=== PATIENT | female | born 1970 | race Caucasian/White ===

== ENCOUNTER 2024-08-12 12:15 | Emergency (ER) | payer BC, SELFPAY ==
[2024-08-12 12:53] VITALS: BP 139/75; PULSE 79; RESP 16; TEMP 37.1; O2SAT 95; BMI 30.4
[2024-08-12 13:53] LABS: PCR FLU A Negative PCR FLU A (Negative); PCR FLU B Negative PCR FLU B (Negative); PCR RSV Negative PCR RSV (Negative); SARS PCR* Negative SARS-CoV-2 (Negative)
[2024-08-12 14:43] LABS: Lactate Sepsis w/Reflex* 0.8 mmol/L (0.5-1.9)
[2024-08-12] MEDS: KETOROLAC 15 MG/ML inj IVP (14:48)
[2024-08-12 14:54] LABS: Basophils Percent Auto 0.3 % (0.0-3.0); Eosinophils Percent Auto 0.1 % (0.0-7.0); Hematocrit 39.8 % (33.0-51.0); Hemoglobin* 12.7 gm/dL (12.0-16.0); Immature Granulocytes Pct Auto 1.1 %; Lymphocytes Percent Auto 23.6 % (20-44); Mean Corpuscular HGB Conc 32 gm/dL (32-36); Mean Corpuscular Hemoglobin 29 pg (26-34); Mean Corpuscular Volume 92 fL (80-100); Monocytes Percent Auto 7.3 % (0.0-11.0); Neutrophils Percent Auto 67.6 % (42.0-72.0); Platelet Count* 274 K/uL (140-440); Red Blood Count 4.34 m/uL (4.00-5.20); White Blood Count* 13.24 K/uL (4.50-11.00)
[2024-08-12 15:02] LABS: Chloride* 105 mmol/L (96-114); Potassium* 3.5 mmol/L (3.6-5.1); Slide Review Reflex No; Sodium* 137 mmol/L (135-149)
[2024-08-12 15:05] LABS: Creatinine* 0.4 mg/dL (0.5-1.5); Est. Creatinine Clearance* 162.19; Estimated Glomerular Filt Rate 118 ml/min
[2024-08-12 15:06] LABS: Blood Urea Nitrogen* 8 mg/dL (7-30); Calcium* 8.4 mg/dL (8.4-10.6); Carbon Dioxide* 27 mmol/L (20-32); Glucose* 85 mg/dL (60-115)
[2024-08-12 15:07] LABS: Anion Gap 5 mEq/L (7-15)
[2024-08-12 15:09] LABS: C Reactive Protein* 1.1 mg/dL (0.5-1.0)
[2024-08-12 15:34] VITALS: PULSE 75; O2SAT 97
[2024-08-12 15:46] LABS: Erythrocyte SedimentationRate* 16 mm/hr (2-20)
--- NOTE | 2024-08-12 15:46 | ED_ITS ---
HPI - General Adult General Date Seen: 08/12/24 Chief complaint: Cough Stated complaint: Pneumonia last week worse Time Seen by Provider: 08/12/24 14:04 Source: patient History of Present Illness HPI narrative: Patient is a 54-year-old woman, past medical history reviewed, who presented to [place] [id number] on 08/06 because of right-sided chest pain. Her workup there showed a near normal white blood cell count of 11.8, a D-dimer of 0.6 which led to a chest CT. This was read as showing increased right upper lobe consolidation compared to the prior exam. She says that she has had prior scans of her heart, and presumably that is with her comparing it to, but it looks as if this last CT was done in December of 2017. They noted scattered ground-glass nodular opacities throughout the right upper lobe and additional ground-glass nodular opacities in the right middle lobe right lower lobe and left upper lobe new compared to prior. They read this as most compatible with multifocal pneumonia. We started her on doxycycline. She notes that she just does not feel any better. She is not knee worse. She reports that she thinks she is having low-grade fevers at night, nothing above 100. She has a little bit of a cough, she notes some phle gm. She does not feel short of breath. She continues to have this right-sided chest pain which is her primary complaint. This is worse with breathing and with movement. She also notes fatigue. CT scan at [place] [id number] was negative for PE. Related Data Home Medications ?Medication ?Instructions ?Recorded ?Confirmed 5-MTHF Plus methy 1 B-12 (l-methyl PO 07/03/24 07/03/24 Folate) ammonium lactate 12 % topical cream 1 applic topical DAILY 07/03/24 07/03/24 bioidentical hormones PO 07/03/24 07/03/24 cholecalciferol (vitamin D3) 250 250 mcg PO QDAY 07/03/24 07/03/24 mcg (10,000 unit) tablet methylated 10 X health multi PO 07/03/24 psyllium 1 packet PO QDAY 07/03/24 07/03/24 Previous Rx's ?Medication ?Instructions ?Recorded fluticasone propionate 50 1 spray intranasal QDAY #16 grams 07/03/24 mcg/actuation nasal spray,suspension (Flonase Allergy Relief) nicotine (polacrilex) 4 mg gum 4 mg PO Q1-2H PRN nicotine 07/03/24 cravings #40 ea phentermine 37.5 mg tablet 37.5 mg PO QDAY #30 tabs 07/03/24 trazodone 100 mg tablet 50 - 100 mg (0.5 - 1 x 100 mg) PO 07/03/24 QHS #30 tabs fluoxetine 20 mg capsule (Prozac) See Rx Instructions PO QDAY #60 07/29/24 caps levofloxacin 500 mg tablet 500 mg PO DAILY 7 days #7 tabs 08/12/24 prednisone 20 mg tablet 20 mg PO BID #10 tabs 08/12/24 Allergies Allergy/AdvReac Type Severity Reaction Status Date / Time Latex, Natural Rubber Allergy Mild Unknown Verified 07/03/24 09:50 acetaminophen (From Vicodin) Allergy Unknown Vomiting Verified 07/09/24 09:02 hydrocodone (From Vicodin) Allergy Unknown Vomiting Verified 07/09/24 09:02 Review of Systems Status of ROS: Reports: 10 or more systems reviewed and unremarkable except as noted in History and below PFSH PFSH Medical History Major depression, recurrent ?F33.9 - Major depressive disorder, recurrent, unspecified (ICD-10) Plantar fasciitis of left foot ?M72.2 - Plantar fascial fibromatosis (ICD-10) LEXIS (obstructive sleep apnea) ?G47.33 - Obstructive sleep apnea (adult) (pediatric) (ICD-10) Bacterial vaginosis ?N76.0 - Acute vaginitis (ICD-10) ?B96.89 - Other specified bacterial agents as the cause of diseases classified elsewhere (ICD-10) Elevated hemoglobin A1c measurement ?R73.09 - Other abnormal glucose (ICD-10) Right atrial mass ?I51.89 - Other ill-defined heart diseases (ICD-10) History of colon polyps ?Z86.0100 - Personal history of colon polyps, unspecified (ICD-10) History of basal cell carcinoma (BCC) ?Z85.828 - Personal history of other malignant neoplasm of skin (ICD-10) Nontoxic thyroid nodule ?E04.1 - Nontoxic single thyroid nodule (ICD-10) Essential hypertension ?I10 - Essential (primary) hypertension (ICD-10) Genital herpes ?A60.00 - Herpesviral infection of urogenital system, unspecified (ICD-10) Fatty liver ?K76.0 - Fatty (change of) liver, not elsewhere classified (ICD-10) Microscopic colitis ?K52.839 - Microscopic colitis, unspecified (ICD-10) ALEX (generalized anxiety disorder) ?F41.1 - Generalized anxiety disorder (ICD-10) Exogenous obesity ?E66.09 - Other obesity due to excess calories (ICD-10) Insomnia ?G47.00 - Insomnia, unspecified (ICD-10) Chronic nasal congestion ?R09.81 - Nasal congestion (ICD-10) IBS (irritable bowel syndrome) ?K58.9 - Irritable bowel syndrome, unspecified (ICD-10) Tobacco use (12/05/11) ?Z72.0 - Tobacco use (ICD-10) Surgical History History of lumbar discectomy ?Z98.890 - Other specified postprocedural states (ICD-10) History of bladder surgery (2003) ?Z98.890 - Other specified postprocedural states (ICD-10) History of tubal ligation (1996) ?Z98.51 - Tubal ligation status (ICD-10) History of tonsillectomy and adenoidectomy (1982) ?Z90.89 - Acquired absence of other organs (ICD-10) History of breast biopsy ?Z98.890 - Other specified postprocedural states (ICD-10) History of reconstruction of anterior cruciate ligament tear ?Z98.890 - Other specified postprocedural states (ICD-10) History of cholecystectomy ?Z90.49 - Acquired absence of other specified parts of digestive tract (ICD- 10) History of hysterectomy (1998) ?Z90.710 - Acquired absence of both cervix and uterus (ICD-10) Family History Sister Diabetes Mother Diabetes Stroke Bipolar disorder Mitral valve disease Celiac disease Alcohol dependence High blood pressure Father Diabetes Alcohol dependence Heart disease Breast cancer High blood pressure Brother Heart disease Myocardial infarction, Onset Age: 44 Drug dependence High blood pressure Sister Bipolar disorder Drug dependence High blood pressure Aunt Breast cancer Social History Narrative: Single, two kids, one (son, OD'd while in custody), road construction, smoker, no EtOH What is your current living situation?: I presently have a place to live Problems where you live: no known problems In the past 12 months, utilities in danger of being shut off: no In past 12 months, lack of transportation kept you from medical appts, meetings, work, or getting things needed for daily living: no In the past 12 mos, have been you worried that your food would run out before you had money to buy more?: never true In the past 12 mos, the food you bought just didn't last and you didn't have money to buy more?: never true Smoking Status: Current some day smoker What tobacco products do you use: cigarettes How often does anyone, including family, friends and others, physically hurt you : never How often does anyone, including family, friends and others, insult or talk down to you: never How often does anyone, including family, friends and others, threaten you with harm: never How often does anyone, including family, friends and others, scream or curse at you: never Exam Narrative: Exam Narrative: Vital signs reviewed In general, alert, nontoxic woman. Breathing easily. Head: Normocephalic, atraumatic. Eyes: Sclera clear. Pupils equal and reactive. ENT: Mucous membranes moist. Neck: Supple without adenopathy. Heart: Regular rate and rhythm without murmur. Lungs: Clear. No increased work of breathing, crackles or wheezes. Abdomen: Soft, nontender to palpation. Extremities: Well perfused, pulses intact. No significant edema. Neurologic: Alert, conversant. Speech fluent, face symmetric. Moves all extremities equally. Skin: Warm, dry well perfused. Affect: Normal. Const: Vital Signs, click to edit/add: Vital Signs - 24 hr 08/12/24 12:53 08/12/24 15:34 08/12/24 16:00 Temperature 98.7 F Pulse Rate 75 75 Pulse Rate [Pulse Oximeter] 79 Respiratory Rate 16 Blood Pressure [Ri ght Upper Arm] 139/75 Pulse Oximetry 95 97 97 Oxygen Delivery Me thod Room Air Course Course ED Course: I reviewed records from [place] [address] as outlined in the HPI. Overall, her presentation is not entirely suggestive of pneumonia, although it is possible that doxycycline did not provide adequate coverage. I did repeat labs, her white blood cell count is mildly higher today at 13. Her CRP is essentially normal at 1.1 however. Hemoglobin is normal, metabolic panel is unremarkable. Lactate is 0.8. COVID is negative as is influenza. TSH and sed rate are pending at this time. Placed an IV here in gave her Toradol to see if that helps her chest pain. She does have an appointment scheduled with her primary doctor on August 15. I do not see any indications for admission here, she is not toxic, hypoxic, or otherwise significantly ill appearing. I think it is reasonable to provide additional antibiotic coverage, she wonders about starting a steroid as well. Discussed that I do not hear any bronchospasm, I am not sure that a steroid will be significantly helpful, but it is probably not harmful to add either if she would like. Sed rate is normal. She does feel improved after Toradol. She was prescribed lidocaine patches and Flexeril by [facility]. She says she did not fill the lidocaine patches because she does not feel like they are helpful. She had a lengthy story about the Flexeril, not clear whether she actually filled that or not. At this point, I do not have a clear alternate diagnosis other than pneumo júnior. Her TSH is mildly elevated at 4.5 but I do not think this is going to end up being clinically significant. Free T4 is pending. I am giving her Levaquin and prednisone. Will see if she is feeling better over the next few days. If she does not improve with this, we may need to consider alternate explanations for her lung findings. Return any time for significant worsening. See primary care in a few days as planned. Vital Signs Vital signs: Initial Vital Signs Temperature 98.7 F 08/12/24 12:53 Temperature Source Temporal Artery Scan 08/12/24 12:53 Pulse Rate 79 08/12/24 12:53 Respiratory Rate 16 08/12/24 12:53 Blood Pressure 139/75 08/12/24 12:53 Blood Pressure Mean 96 08/12/24 12:53 Blood Pressure Position Sitting 08/12/24 12:53 Pulse Oximetry 95 08/12/24 12:53 Oxygen Delivery Method Room Air 08/12/24 12:53 Vital Signs Temperature 98.7 F 08/12/24 12:53 Pulse Rate 79 08/12/24 12:53 Respiratory Rate 16 08/12/24 12:53 Blood Pressure 139/75 12/30/24 12:53 Pulse Oximetry 95 08/12/24 12:53 Oxygen Delivery Method Room Air 08/12/24 12:53 Temperature 98.7 F 08/12/24 12:53 Pulse Rate 75 08/12/24 16:00 Respiratory Rate 16 08/12/24 12:53 Blood Pressure 139/75 08/12/24 12:53 Pulse Oximetry 97 08/12/24 16:00 Oxygen Delivery Method Room Air 08/12/24 12:53 Medications Administered Medications: Discontinued Medications Generic Name Dose Route Start Last Admin Trade Name Freq PRN Reason Stop Dose Admin Ketorolac Tromethamine 15 mg 08/12/24 14:23 08/12/24 14:48 Ketorolac 15 Mg/Ml Inj IVP 08/12/24 14:24 15 mg ONCE ONE Administration Medical Decision Making Lab Data Labs: Lab Results 08/12/24 08/12/24 Range/Units 12:57 14:35 WBC 13.24 H (4.50-11.00) K/uL RBC 4.34 (4.00-5.20) m/uL Hgb 12.7 (12.0-16.0) gm/dL Hct 39.8 (33.0-51.0) % MCV 92 (80-100) fL MCH 29 (26-34) pg MCHC 32 (32-36) gm/dL RDW Coeff of Sunil 13.0 (11.5-15.5) % Plt Count 274 (140-440) K/uL Neut % (Auto) 67.6 (42.0-72.0) % Lymph % (Auto) 23.6 (20-44) % Lewis % (Auto) 7.3 (0.0-11.0) % Eos % (Auto) 0.1 (0.0-7.0) % Baso % (Auto) 0.3 (0.0-3.0) % Neut # (Auto) 9.00 H (1.7-7.0) K/uL Lymph # (Auto) 3.10 H (0.90-2.90) K/uL Lewis # (Auto) 1.00 H (0.00-0.90) K/UL Eos # (Auto) 0.00 (0.00-0.50) K/uL Baso # (Auto) 0.00 (0.00-0.30) K/uL Abs Immat Gran (auto) 0.10 (0.00-0.30) K/uL Imm/Tot Granulo (auto) 1.1 % ESR 16 (2-20) mm/hr Sodium 137 (135-149) mmol/L Potassium 3.5 L (3.6-5.1) mmol/L Chloride 105 (96-114) mmol/L Carbon Dioxide 27 (20-32) mmol/L Anion Gap 5 L (7-15) mEq/L BUN 8 (7-30) mg/dL Creatinine 0.4 L (0.5-1.5) mg/dL Estimated Creat Clear 162.19 Estimated GFR 118 ml/min Glucose 85 (60-115) mg/dL Lactate 0.8 (0.5-1.9) mmol/L Calcium 8.4 (8.4-10.6) mg/dL C-Reactive Protein 1.1 H (0.5-1.0) mg/dL TSH 4.500 H (0.270-4.200) uIU/mL Free T4 1.12 (0.70-1.85) ng/dL SARS-CoV-2 (PCR) Negative SARS-CoV-2 (Negative) Influenza Type A (PCR) Negative PCR FLU A (Negative) Influenza Type B (PCR) Negative PCR FLU B (Negative) RSV (PCR) Negative PCR RSV (Negative) Discharge Plan Discharge Clinical Impression: Pulmonary infiltrate on radiologic exam Patient Disposition: Home, Self-Care Condition: Improved Additional Instructions: We are going to try putting you on a different antibiotic as well as a little bit of prednisone to see how you feel. If symptoms are not improving, please discuss further with Dr. Galicia on the 2nd. For acute worsening such as high fevers, significant shortness of breath, vomiting etcetera return to the ER at any time. Prescriptions: New levofloxacin 500 mg tablet 500 mg PO DAILY 7 Days Qty: 7 0RF prednisone 20 mg tablet 20 mg PO BID Qty: 10 0RF No Action ammonium lactate 12 % cream 1 applic topical DAILY bioidentical hormones PO methylated 10 X health multi PO 5-MTHF Plus methy 1 B-12 (l-methyl Folate) PO cholecalciferol (vitamin D3) 250 mcg (10,000 unit) tablet 250 mcg PO QDAY psyllium Packet 1 packet PO QDAY Rx Instructions: mix into at least 8 oz of water or juice before administering phentermine 37.5 mg tablet 37.5 mg PO QDAY Qty: 30 1RF Rx Instructions: must administer 30 minutes before or 1-2 hours after breakfast trazodone 100 mg tablet 50 - 100 mg PO QHS Qty: 30 1RF fluticasone propionate [Flonase Allergy Relief] 50 mcg/actuation spray,suspe nsion 1 spray intranasal QDAY Qty: 16 5RF Rx Instructions: administer into each nostril nicotine (polacrilex) 4 mg gum 4 mg PO Q1-2H PRN (Reason: nicotine cravings) Qty: 40 2RF fluoxetine [Prozac] 20 mg capsule See Rx Instructions PO QDAY Qty: 60 0RF Rx Instructions: 2 QD Follow Up/Referrals: Carlton Galicia MD [Primary Care Provider] - Stand Alone Forms: [facility] Info Instructions
[2024-08-12 16:00] VITALS: PULSE 75; O2SAT 97
[2024-08-12 17:15] LABS: Free T4 Free Thyroxine* 1.12 ng/dL (0.70-1.85)
== END 2024-08-12 16:22 | disposition home or self-care (01) ==
PROVIDERS: Emergency Provider Emergency Medicine; PCP Family Medicine
DX: R91.8 Other nonspecific abnormal finding of lung field (principal)
CPT/HCPCS: 36415; 80048; 83605; 84439; 84443; 85025; 85651; 86140; 87631; 94761; 96374; 99284; J1885

== ENCOUNTER 2024-08-15 09:04 | Outpatient (CLI) | payer BC, SELFPAY | END 2024-08-15 09:05 | disposition home or self-care (01) | LOC: FBOREF 09:05 | PROVIDERS: PCP Family Medicine; Visit Provider Family Medicine | DX: E78.2 Mixed hyperlipidemia (principal) | CPT/HCPCS: 80061 ==

== ENCOUNTER 2024-10-03 09:46 | Outpatient (CLI) | payer BC, SELFPAY ==
--- NOTE | 2024-10-03 10:00 | CRLHL7_ITS ---
For Patients: As a result of the Century Cures Act, medical imaging exams and procedure reports are released immediately into your electronic medical record. You may view this report before your referring provider. If you have questions, please contact your health care provider. Indication: Chronic sinusitis. Nasal congestion. Sleep apnea. Recent pneumonia. Technique: Noncontrast CT of the paranasal sinuses. Coronal and sagittal reformats. Bone and soft tissue algorithms. Comparison: None Findings: Frontal sinuses: The frontal sinuses and frontal recesses are clear. Ethmoid air cells: The ethmoid air cells are clear. Sphenoid sinuses: Marked mucosal thickening and subtotal opacification of the right sphenoid sinus with chronic osteitis changes and narrowed the sphenoethmoidal recess. Clear left sphenoid sinus and sphenoethmoidal recess. Maxillary sinuses: The maxillary sinuses are clear. The osteomeatal units are clear. Nasal cavity: Slight leftward nasal septal deviation. No large brittney bullosa or paradoxical turbinates. Skull base, maxilla, TMJ: No suspicious dental periapical lucencies. No concerning findings within the orbits or included intracranial structures. Small left and trace right mastoid effusions. Left TMJ arthrosis. IMPRESSION: 1. Subtotal opacification of the right sphenoid sinus from marked mucosal thickening and chronic osteitis changes. Narrowed right sphenoethmoidal recess. 2. Remainder of the sinonasal cavities are clear. 3. Slight leftward nasal septal deviation. 4. Small left and trace right mastoid effusions. 5. Left TMJ arthrosis. Please note that all CT scans at this facility use dose modulation, iterative reconstruction, and/or weight-based dosing when appropriate to reduce radiation dose to as low as reasonably achievable. Dictated by Viki Crockett MD @ 10/03/2024 1:04:17 PM (Electronically Signed)
== END 2024-10-03 09:47 | disposition home or self-care (01) ==
LOC: CT 09:47
PROVIDERS: PCP Family Medicine; Visit Provider Family Medicine
DX: J32.9 Chronic sinusitis, unspecified (principal); R09.81 Nasal congestion; J34.2 Deviated nasal septum; M19.09 Primary osteoarthritis, other specified site
CPT/HCPCS: 70486

== ENCOUNTER 2024-12-12 15:07 | Outpatient (CLI) | payer BC, SELFPAY ==
[2024-12-12 18:32] LABS: Bacterial Vaginosis* Negative (Negative); Candida glab/krus NOT DETECTED (No Detected); Candida species NOT DETECTED (No Detected); Trichomonas vaginalis NOT DETECTED (No Detected)
[2024-12-12 19:03] LABS: Chlamydia DNA Amplified* NOT DETECTED (No Detected); GC DNA Amplified* NOT DETECTED (No Detected)
== END 2024-12-12 15:08 | disposition home or self-care (01) ==
PROVIDERS: PCP Family Medicine; Visit Provider Physician Assistant
DX: N89.8 Other specified noninflammatory disorders of vagina (principal); Z11.3 Encounter for screening for infections with a predominantly sexual mode of transmission
CPT/HCPCS: 81513; 87481; 87491; 87591; 87661

== ENCOUNTER 2025-03-03 11:51 | Outpatient (CLI) | payer BC, SELFPAY | END 2025-03-03 11:52 | disposition home or self-care (01) | PROVIDERS: PCP Family Medicine; Visit Provider Family Medicine | DX: R14.0 Abdominal distension (gaseous) (principal); E78.2 Mixed hyperlipidemia; I10 Essential (primary) hypertension; R04.1 Hemorrhage from throat | CPT/HCPCS: 80048; 80061; 80076; 83690 ==

== ENCOUNTER 2025-06-12 11:10 | Outpatient (CLI) | payer BC, SELFPAY | END 2025-06-12 11:11 | disposition home or self-care (01) | PROVIDERS: PCP Family Medicine; Visit Provider Family Medicine | DX: I10 Essential (primary) hypertension (principal) | CPT/HCPCS: 80048; 80076 ==